=== PATIENT | male | born 1950 | race Caucasian/White ===

== ENCOUNTER 2021-05-02 00:32 | Emergency (ER) | payer OTHER ==
[2021-05-02 01:13] VITALS: TEMP 98.3; BMI 26.6
[2021-05-02 02:21] LABS: BASO % 0.6 % (0-2.0); EOS % 8.4 % (0-4.5); HEMATOCRIT 36.1 % (35.4-49); LYMPH % 10.2 % (8-40); MCH 30.5 pg (25.7-33.7); MCHC 33.2 g/dl (32.0-35.9); MEAN PLT VOLUME 8.4 fl (7.5-11.1); MONO % 11.3 % (3.8-10.2); NEUT % 69.5 % (42.8-82.8); PLATELET COUNT 204 10^3/uL (134-434); RBC 3.93 M/mm3 (4.00-5.60); RDW 14.7 % (11.9-15.9); WHITE BLOOD COUNT 6.9 K/mm3 (4.0-10.0)
[2021-05-02 02:27] LABS: VENOUS BASE EXCESS -1.5 mmol/L (-2-2); VENOUS PCO2 46.6 mmHg (38-52); VENOUS PH 7.339 (7.310-7.410)
[2021-05-02 02:30] LABS: INR 0.97 (0.83-1.09); PROTHROMBIN TIME (PATIENT) 11.8 SEC (9.7-13.0)
[2021-05-02] MEDS: ALBUTEROL SO4 2.5/IPRATROPIUM 0.5 INH SOL 3 ML VIAL.NEB. NEB SCH ×4 (02:30→03:13)
[2021-05-02 02:32] LABS: ACTIVATED PTT 28.5 SECONDS (25.2-36.5)
[2021-05-02 02:34] LABS: CHLORIDE 111 mmol/L (98-107); SODIUM 135 mmol/L (136-145)
[2021-05-02 02:39] LABS: ALBUMIN 3.3 g/dl (3.4-5.0); BLOOD UREA NITROGEN 19.9 mg/dL (7-18); CO2 22 mmol/L (21-32); GLUCOSE,RANDOM 81 mg/dL (74-106); MAGNESIUM 2.7 mg/dL (1.8-2.4)
[2021-05-02 02:42] LABS: CREATININE 1.5 mg/dL (0.55-1.3); SGOT/AST 72 U/L (15-37)
[2021-05-02 02:43] LABS: BILIRUBIN,TOTAL 0.5 mg/dL (0.2-1); N-TERMINAL BNP 93.9 pg/ml (5-125); TOT PROT 7.4 g/dl (6.4-8.2)
[2021-05-02 02:44] LABS: ALK PHOS 98 U/L (45-117)
[2021-05-02 02:47] LABS: ANION GAP 2 MMOL/L (8-16); SGPT/ALT 36 U/L (13-61)
[2021-05-02] MEDS ORDERED: SODIUM CHLORIDE 0.9% 1000 ML INFUS.BAG IV ONE (03:00)
[2021-05-02] MEDS ORDERED: CEFTRIAXONE 1 GM in DEXTROSE 5%-WATER - 50 ML IVPB ONE (03:15)
[2021-05-02] MEDS ORDERED: AZITHROMYCIN IVPB 500 MG in DEXTROSE 5%-WATER - 250 ML IVPB ONE (03:16)
[2021-05-02] MEDS ORDERED: CEFTRIAXONE 1 GM/50 ML BAG ONE (03:50)
[2021-05-02 04:29] LABS: BLOOD UREA NITROGEN 20.8 mg/dL (7-18); CALCIUM 8.1 mg/dL (8.5-10.1)
[2021-05-02 04:33] LABS: CREATININE 1.4 mg/dL (0.55-1.3)
[2021-05-02] MEDS ORDERED: DEXAMETHASONE LIQUID 0.5 MG/5 ML PO ONE (05:14)
[2021-05-02] MEDS ORDERED: DEXAMETHASONE SOD PHOSPHATE 10 MG/1 ML VIAL ONE ×2 (05:24→05:28)
[2021-05-02 05:31] VITALS: BP 110/76; PULSE 80
== END 2021-05-02 05:32 | disposition home or self-care (01) ==
LOC: JER 00:32
PROC: 3E033GC Introduction of Other Therapeutic Substance into Peripheral Vein, Percutaneous Approach (ICD-10-PCS; principal; 2021-05-02)
PROC: 3E0F7GC Introduction of Other Therapeutic Substance into Respiratory Tract, Via Natural or Artificial Opening (ICD-10-PCS; principal; 2021-05-02)
DX: J45.40 Moderate persistent asthma, uncomplicated (principal)
CPT/HCPCS: 36415; 71045-TC-FY; 71275-TC; 80048; 80053; 82803; 83735; 83880; 84484; 85025; 85379; 85610; 85730; 87040; 93005; 93010; 99285-25

== ENCOUNTER 2021-05-05 11:11 | Emergency (ER) | payer OTHER ==
[2021-05-05 11:41] VITALS: TEMP 98.2; BMI 29.1
[2021-05-05] MEDS ORDERED: DEXAMETHASONE SOD PHOSPHATE 10 MG/1 ML VIAL IM ONE (13:23)
[2021-05-05] MEDS ORDERED: DEXAMETHASONE SOD PHOSPHATE 10 MG/1 ML VIAL IVPUSH ONE (13:42)
[2021-05-05] MEDS ORDERED: ALBUTEROL SO4 2.5/IPRATROPIUM 0.5 INH SOL 3 ML VIAL.NEB. NEB ONE (13:53)
[2021-05-05] MEDS ORDERED: DEXAMETHASONE SOD PHOSPHATE 10 MG/1 ML VIAL ONE (13:53)
[2021-05-05] MEDS: ALBUTEROL SO4 2.5/IPRATROPIUM 0.5 INH SOL 3 ML VIAL.NEB. NEB SCH ×2 (13:58→14:40)
[2021-05-05 14:15] LABS: HEMATOCRIT 39.8 % (35.4-49); HEMOGLOBIN 12.9 GM/dL (11.7-16.9); MCH 30.2 pg (25.7-33.7); MCHC 32.4 g/dl (32.0-35.9); MEAN CELL VOLUME 93.1 fl (80-96); MEAN PLT VOLUME 9.1 fl (7.5-11.1); PLATELET COUNT 221 10^3/uL (134-434); RBC 4.28 M/mm3 (4.00-5.60); RDW 14.3 % (11.9-15.9); WHITE BLOOD COUNT 7.1 K/mm3 (4.0-10.0)
[2021-05-05 14:36] LABS: CHLORIDE 112 mmol/L (98-107); SODIUM 140 mmol/L (136-145)
[2021-05-05 14:38] LABS: CALCIUM 8.6 mg/dL (8.5-10.1)
[2021-05-05 14:39] LABS: ALBUMIN 3.4 g/dl (3.4-5.0); ANION GAP 6 MMOL/L (8-16); BLOOD UREA NITROGEN 25.5 mg/dL (7-18); CO2 23 mmol/L (21-32); GLUCOSE,RANDOM 79 mg/dL (74-106)
[2021-05-05 14:42] LABS: CREATININE 1.4 mg/dL (0.55-1.3); SGOT/AST 21 U/L (15-37); SGPT/ALT 33 U/L (13-61)
[2021-05-05 14:43] LABS: BILIRUBIN,TOTAL 0.3 mg/dL (0.2-1); TOT PROT 6.9 g/dl (6.4-8.2)
[2021-05-05 14:45] LABS: ALK PHOS 103 U/L (45-117)
[2021-05-05 14:47] LABS: N-TERMINAL BNP 98.5 pg/ml (5-125)
[2021-05-05 17:16] VITALS: BP 126/79; PULSE 89
== END 2021-05-05 17:26 | disposition home or self-care (01) ==
LOC: JER 11:11
PROC: 3E0F7GC Introduction of Other Therapeutic Substance into Respiratory Tract, Via Natural or Artificial Opening (ICD-10-PCS; principal; 2021-05-05)
PROC: 3E023NZ Introduction of Analgesics, Hypnotics, Sedatives into Muscle, Percutaneous Approach (ICD-10-PCS; 2021-05-05)
PROC: 3E033NZ Introduction of Analgesics, Hypnotics, Sedatives into Peripheral Vein, Percutaneous Approach (ICD-10-PCS; 2021-05-05)
DX: R06.02 Shortness of breath (principal)
CPT/HCPCS: 36415; 71046-TC-FY; 80053; 83880; 84484; 85027; 93005; 93010; 99284-25; J1100

== ENCOUNTER 2021-05-26 10:44 | Emergency (ER) | payer OTHER ==
[2021-05-26 10:51] VITALS: TEMP 97.8; BMI 29.0
[2021-05-26 12:15] LABS: BASO % 0.7 % (0-2.0); EOS % 17.3 % (0-4.5); HEMATOCRIT 38.4 % (35.4-49); HEMOGLOBIN 12.9 GM/dL (11.7-16.9); LYMPH % 17.5 % (8-40); MCH 30.7 pg (25.7-33.7); MCHC 33.6 g/dl (32.0-35.9); MEAN CELL VOLUME 91.3 fl (80-96); MEAN PLT VOLUME 8.5 fl (7.5-11.1); MONO % 10.6 % (3.8-10.2); NEUT % 53.9 % (42.8-82.8); PLATELET COUNT 171 10^3/uL (134-434); RBC 4.21 M/mm3 (4.00-5.60); RDW 14.8 % (11.9-15.9)
[2021-05-26 12:45] LABS: ALBUMIN 3.2 g/dl (3.4-5.0); CALCIUM 8.4 mg/dL (8.5-10.1); CO2 24 mmol/L (21-32); LIPASE 101 U/L (73-393)
[2021-05-26 12:46] LABS: BLOOD UREA NITROGEN 17.8 mg/dL (7-18); GLUCOSE,RANDOM 82 mg/dL (74-106)
[2021-05-26 12:48] LABS: CREATININE 1.5 mg/dL (0.55-1.3); SGOT/AST 18 U/L (15-37); SGPT/ALT 27 U/L (13-61)
[2021-05-26 12:50] LABS: BILIRUBIN,TOTAL 0.3 mg/dL (0.2-1); TOT PROT 7.3 g/dl (6.4-8.2)
[2021-05-26 12:51] LABS: ALK PHOS 95 U/L (45-117)
[2021-05-26] MEDS ORDERED: methylPREDNISolone NA SUCC 125 MG/2 ML VIAL IVPUSH ONE (12:52)
[2021-05-26] MEDS ORDERED: methylPREDNISolone NA SUCC 125 MG/2 ML VIAL ONE (13:05)
[2021-05-26 13:10] LABS: ANION GAP 8 MMOL/L (8-16); CHLORIDE 112 mmol/L (98-107); SODIUM 143 mmol/L (136-145)
[2021-05-26] MEDS: ALBUTEROL SO4 2.5/IPRATROPIUM 0.5 INH SOL 3 ML VIAL.NEB. NEB SCH ×4 (13:15→14:10)
[2021-05-26] MEDS ORDERED: ALBUTEROL SO4 2.5/IPRATROPIUM 0.5 INH SOL 3 ML VIAL.NEB. NEB ONE (13:58)
[2021-05-26 16:01] VITALS: BP 122/75; PULSE 84
== END 2021-05-26 16:57 | disposition home or self-care (01) ==
LOC: JER 10:44
PROC: 3E033NZ Introduction of Analgesics, Hypnotics, Sedatives into Peripheral Vein, Percutaneous Approach (ICD-10-PCS; principal; 2021-05-26)
PROC: 3E0F7GC Introduction of Other Therapeutic Substance into Respiratory Tract, Via Natural or Artificial Opening (ICD-10-PCS; 2021-05-26)
DX: J44.1 Chronic obstructive pulmonary disease with (acute) exacerbation (principal)
CPT/HCPCS: 36415; 71045-TC-FY; 80053; 82550; 82553; 83690; 84484; 85025; 93005; 93010; 99284-25; C9803; U0003; U0005

== ENCOUNTER 2021-07-17 23:57 | Inpatient (IN) | payer OTHER ==
[2021-07-18 00:16] VITALS: TEMP 98.9; BMI 26.7
[2021-07-18] MEDS ORDERED: ALBUTEROL SO4 2.5/IPRATROPIUM 0.5 INH SOL 3 ML VIAL.NEB. NEB ONE ×2 (01:00→01:02)
[2021-07-18] MEDS ORDERED: methylPREDNISolone NA SUCC 125 MG/2 ML VIAL IVPUSH ONE (01:19)
[2021-07-18] MEDS ORDERED: methylPREDNISolone NA SUCC 125 MG/2 ML VIAL ONE (01:46)
[2021-07-18 02:20] LABS: BASO % 0.7 % (0-2.0); HEMATOCRIT 36.7 % (35.4-49); HEMOGLOBIN 12.5 GM/dL (11.7-16.9); LYMPH % 21.7 % (8-40); MCH 31.4 pg (25.7-33.7); MCHC 34.1 g/dl (32.0-35.9); MEAN PLT VOLUME 8.5 fl (7.5-11.1); MONO % 9.8 % (3.8-10.2); NEUT % 55.8 % (42.8-82.8); PLATELET COUNT 184 10^3/uL (134-434); RBC 3.99 M/mm3 (4.00-5.60); RDW 14.6 % (11.9-15.9); WHITE BLOOD COUNT 6.1 K/mm3 (4.0-10.0)
[2021-07-18 02:38] LABS: CHLORIDE 110 mmol/L (98-107); SODIUM 143 mmol/L (136-145)
[2021-07-18 02:42] LABS: ALBUMIN 3.2 g/dl (3.4-5.0); ANION GAP 4 MMOL/L (8-16); BLOOD UREA NITROGEN 29.3 mg/dL (7-18); CO2 29 mmol/L (21-32); GLUCOSE,RANDOM 124 mg/dL (74-106)
[2021-07-18 02:45] LABS: CREATININE 1.7 mg/dL (0.55-1.3); SGOT/AST 28 U/L (15-37); SGPT/ALT 28 U/L (13-61)
[2021-07-18] MEDS ORDERED: ALBUTEROL SO4 HFA INHALER IH ONE ×2 (02:45→03:52)
[2021-07-18 02:46] LABS: BILIRUBIN,TOTAL 0.6 mg/dL (0.2-1)
[2021-07-18 02:47] LABS: TOT PROT 7.2 g/dl (6.4-8.2)
[2021-07-18 02:48] LABS: ALK PHOS 103 U/L (45-117)
[2021-07-18] MEDS ORDERED: ALBUTEROL SO4 HFA INHALER IH PRN (05:16)
[2021-07-18] MEDS ORDERED: HEPARIN NA (PORCINE) 5,000 UNITS/ML 1ML VIAL ONE (08:20)
[2021-07-18] MEDS ORDERED: methylPREDNISolone NA SUCC 40 MG/1 ML VIAL ONE ×2 (08:20→16:21)
[2021-07-18] MEDS: methylPREDNISolone NA SUCC 40 MG/1 ML VIAL IVPUSH SCH ×2 (08:27→15:30)
[2021-07-18] MEDS ORDERED: HEPARIN NA (PORCINE) 5,000 UNITS/ML 1ML VIAL SQ SCH (10:00)
[2021-07-18 12:48] LABS: PH,URINE 5.5 (5.0-8.0); URINE APPEARANCE CLEAR; URINE BILIRUBIN NEGATIVE (NEGATIVE); URINE COLOR YELLOW; URINE GLUCOSE (UA) NEGATIVE (NEGATIVE); URINE KETONE NEGATIVE (NEGATIVE); URINE LEUK ESTERASE NEGATIVE (NEGATIVE); URINE NITRITE NEGATIVE (NEGATIVE); URINE PROTEIN NEGATIVE (NEGATIVE); URINE UROBILINOGEN 0.2 mg/dL (0.2-1.0)
[2021-07-18 12:57] LABS: ALBUMIN 3.4 g/dl (3.4-5.0); BLOOD UREA NITROGEN 26.6 mg/dL (7-18)
[2021-07-18 12:58] LABS: MAGNESIUM 2.7 mg/dL (1.8-2.4)
[2021-07-18 13:01] LABS: CREATININE 1.5 mg/dL (0.55-1.3); PHOSPHOROUS 3.3 mg/dL (2.5-4.9)
[2021-07-18 13:02] LABS: BILIRUBIN,TOTAL 0.3 mg/dL (0.2-1)
[2021-07-18 13:03] LABS: TOT PROT 7.6 g/dl (6.4-8.2)
[2021-07-18 17:48] VITALS: BP 139/88; PULSE 79
[2021-07-21 12:08] LABS: ANTIGLOMERULAR BASEMENT MEN.AB 2 units (0-20)
[2021-07-22 18:11] LABS: ATYPICAL pANCA <1:20 titer (Neg:<1:20); C-ANCA <1:20 titer (Neg:<1:20)
== END 2021-07-18 18:00 | disposition home or self-care (01) | DRG 141 ==
LOC: JER 23:57 → JERBED 07-18 03:00
PROVIDERS: ADMIT Internal Medicine; ATTEND Internal Medicine
DX: J45.901 Unspecified asthma with (acute) exacerbation (principal); D72.10 Eosinophilia, unspecified; N18.9 Chronic kidney disease, unspecified; R06.02 Shortness of breath; R07.9 Chest pain, unspecified; R09.02 Hypoxemia; N17.9 Acute kidney failure, unspecified
CPT/HCPCS: 36415; 71045-TC-FY; 76775-TC; 80053; 81003; 83036; 83516; 83520; 83735; 84100; 84484; 85025; 86038; 86140; 86256; 93005; 93010; 93970-TC; 99285-25; C9803; J1644; U0003; U0005

== ENCOUNTER 2022-05-13 10:13 | Inpatient (IN) | payer OTHER ==
[2022-05-13 10:21] VITALS: BMI 28.1
[2022-05-13] MEDS ORDERED: methylPREDNISolone NA SUCC 125 MG/2 ML VIAL IVPUSH ONE (11:35)
[2022-05-13] MEDS: ALBUTEROL SO4 2.5/IPRATROPIUM 0.5 INH SOL 3 ML VIAL.NEB. NEB SCH ×4 (11:45→12:22)
[2022-05-13] MEDS ORDERED: methylPREDNISolone NA SUCC 125 MG/2 ML VIAL ONE ×2 (11:52→17:36)
[2022-05-13] MEDS ORDERED: ALBUTEROL SO4 2.5/IPRATROPIUM 0.5 INH SOL 3 ML VIAL.NEB. NEB ONE (12:11)
[2022-05-13 12:16] LABS: BASO % 0.7 % (0-2.0); EOS % 10.9 % (0-4.5); HEMATOCRIT 39.8 % (35.4-49); HEMOGLOBIN 13.2 GM/dL (11.7-16.9); LYMPH % 15.4 % (8-40); MCH 30.5 pg (25.7-33.7); MCHC 33.3 g/dl (32.0-35.9); MEAN CELL VOLUME 91.6 fl (80-96); MEAN PLT VOLUME 8.3 fl (7.5-11.1); MONO % 9.5 % (3.8-10.2); NEUT % 63.5 % (42.8-82.8); PLATELET COUNT 217 10^3/uL (134-434); RBC 4.34 M/mm3 (4.00-5.60); RDW 14.6 % (11.9-15.9)
[2022-05-13 12:35] LABS: ALBUMIN 3.8 g/dl (3.4-5.0); BLOOD UREA NITROGEN 25.8 mg/dL (7-18)
[2022-05-13 12:38] LABS: CREATININE 1.5 mg/dL (0.55-1.3)
[2022-05-13 12:40] LABS: BILIRUBIN,TOTAL 0.4 mg/dL (0.2-1); TOT PROT 7.6 g/dl (6.4-8.2)
[2022-05-13] MEDS ORDERED: ALBUTEROL SO4 0.5 % INH SOLN 2.5 MG/0.5 ML VIAL.NEB. NEB ONE (13:46)
[2022-05-13] MEDS ORDERED: ALBUTEROL SO4 0.083% IH SOL 2.5 MG/3 ML VIAL.NEB. NEB ONE (14:13)
[2022-05-13] MEDS ORDERED: ALBUTEROL SO4 2.5/IPRATROPIUM 0.5 INH SOL 3 ML VIAL.NEB. NEB PRN (17:25)
[2022-05-13] MEDS ORDERED: ASPIRIN COATED 81 MG TABLET.EC ONE (17:37)
[2022-05-13] MEDS: ASPIRIN COATED 81 MG TABLET.EC PO SCH (17:48)
[2022-05-13] MEDS: methylPREDNISolone NA SUCC 125 MG/2 ML VIAL IVPUSH SCH (17:49)
[2022-05-13] MEDS ORDERED: HEPARIN NA (PORCINE) 5,000 UNITS/ML 1ML VIAL ONE (22:00)
[2022-05-13] MEDS: HEPARIN NA (PORCINE) 5,000 UNITS/ML 1ML VIAL SQ SCH (22:12)
[2022-05-14] MEDS ORDERED: methylPREDNISolone NA SUCC 40 MG/1 ML VIAL ONE ×3 (02:39→22:26)
[2022-05-14] MEDS: methylPREDNISolone NA SUCC 125 MG/2 ML VIAL IVPUSH SCH ×2 (02:47→09:19)
[2022-05-14 08:15] LABS: ALBUMIN 3.5 g/dl (3.4-5.0); BLOOD UREA NITROGEN 28.6 mg/dL (7-18); HEMATOCRIT 37.8 % (35.4-49); HEMOGLOBIN 12.6 GM/dL (11.7-16.9); MCH 30.5 pg (25.7-33.7); MCHC 33.4 g/dl (32.0-35.9); MEAN CELL VOLUME 91.5 fl (80-96); MEAN PLT VOLUME 9.4 fl (7.5-11.1); PLATELET COUNT 216 10^3/uL (134-434); RBC 4.13 M/mm3 (4.00-5.60); RDW 14.8 % (11.9-15.9); WHITE BLOOD COUNT 10.8 K/mm3 (4.0-10.0)
[2022-05-14 08:20] LABS: CREATININE 1.4 mg/dL (0.55-1.3)
[2022-05-14 08:21] LABS: BILIRUBIN,TOTAL 0.4 mg/dL (0.2-1); TOT PROT 7.3 g/dl (6.4-8.2)
[2022-05-14] MEDS ORDERED: PANTOPRAZOLE 20 MG TABLET PO ONE (09:10)
[2022-05-14] MEDS ORDERED: ASPIRIN COATED 81 MG TABLET.EC ONE (09:10)
[2022-05-14] MEDS ORDERED: HEPARIN NA (PORCINE) 5,000 UNITS/ML 1ML VIAL ONE ×2 (09:11→22:25)
[2022-05-14] MEDS ORDERED: methylPREDNISolone NA SUCC 125 MG/2 ML VIAL ONE (09:11)
[2022-05-14] MEDS: ASPIRIN COATED 81 MG TABLET.EC PO SCH (09:19)
[2022-05-14] MEDS: HEPARIN NA (PORCINE) 5,000 UNITS/ML 1ML VIAL SQ SCH ×2 (09:19→22:32)
[2022-05-14] MEDS: PANTOPRAZOLE 20 MG TABLET PO SCH (09:19)
[2022-05-14 09:25] LABS: ANISOCYTOSIS 0; HELMET CELLS 0; HOWELL-JOLLY BODIES 0; MACROCYTOSIS 0; OVALOCYTE 0; ROULEAU 0; SICKELED CELLS 0; TARGET CELLS 0; TEAR DROP CELLS 0; TOXIC GRANULATION 0
[2022-05-14] MEDS ORDERED: ALBUTEROL SO4 2.5/IPRATROPIUM 0.5 INH SOL 3 ML VIAL.NEB. NEB SCH (12:15)
[2022-05-14] MEDS ORDERED: ALBUTEROL SO4 0.083% IH SOL 2.5 MG/3 ML VIAL.NEB. NEB PRN (12:22)
[2022-05-14] MEDS ORDERED: ALBUTEROL SO4 2.5/IPRATROPIUM 0.5 INH SOL 3 ML VIAL.NEB. NEB ONE ×2 (12:51→20:49)
[2022-05-14] MEDS: methylPREDNISolone NA SUCC 40 MG/1 ML VIAL IVPUSH SCH ×2 (13:02→22:32)
[2022-05-14] MEDS: ALBUTEROL SO4 2.5/IPRATROPIUM 0.5 INH SOL 3 ML VIAL.NEB. NEB SCH ×2 (15:09→20:50)
[2022-05-14] MEDS ORDERED: ATORVASTATIN CA 40 MG TABLET (FP) ONE (22:25)
[2022-05-14] MEDS: ATORVASTATIN CA 40 MG TABLET (FP) PO SCH (22:32)
[2022-05-15] MEDS ORDERED: methylPREDNISolone NA SUCC 40 MG/1 ML VIAL ONE ×2 (05:55→14:58)
[2022-05-15] MEDS: methylPREDNISolone NA SUCC 40 MG/1 ML VIAL IVPUSH SCH ×3 (06:01→21:22)
[2022-05-15] MEDS ORDERED: ALBUTEROL SO4 2.5/IPRATROPIUM 0.5 INH SOL 3 ML VIAL.NEB. NEB ONE ×2 (07:40→14:58)
[2022-05-15] MEDS: ALBUTEROL SO4 2.5/IPRATROPIUM 0.5 INH SOL 3 ML VIAL.NEB. NEB SCH ×3 (07:41→20:45)
[2022-05-15 08:35] LABS: HEMATOCRIT 41.1 % (35.4-49); HEMOGLOBIN 13.4 GM/dL (11.7-16.9); MCHC 32.6 g/dl (32.0-35.9); MEAN PLT VOLUME 9.2 fl (7.5-11.1); PLATELET COUNT 249 10^3/uL (134-434); RBC 4.47 M/mm3 (4.00-5.60); RDW 14.9 % (11.9-15.9); WHITE BLOOD COUNT 27.4 K/mm3 (4.0-10.0)
[2022-05-15 09:00] LABS: BLOOD UREA NITROGEN 40.6 mg/dL (7-18); CALCIUM 9.2 mg/dL (8.5-10.1)
[2022-05-15 09:04] LABS: CREATININE 1.7 mg/dL (0.55-1.3)
[2022-05-15 09:12] LABS: ANISOCYTOSIS 1+; MACROCYTOSIS 0
[2022-05-15] MEDS ORDERED: ASPIRIN COATED 81 MG TABLET.EC ONE (09:46)
[2022-05-15] MEDS ORDERED: PANTOPRAZOLE 20 MG TABLET PO ONE (09:46)
[2022-05-15] MEDS ORDERED: HEPARIN NA (PORCINE) 5,000 UNITS/ML 1ML VIAL ONE (09:47)
[2022-05-15] MEDS: ASPIRIN COATED 81 MG TABLET.EC PO SCH (09:50)
[2022-05-15] MEDS: HEPARIN NA (PORCINE) 5,000 UNITS/ML 1ML VIAL SQ SCH ×2 (09:50→21:22)
[2022-05-15] MEDS: PANTOPRAZOLE 20 MG TABLET PO SCH (09:50)
[2022-05-15] MEDS ORDERED: methylPREDNISolone NA SUCC 40 MG/1 ML VIAL IVPUSH SCH (10:00)
[2022-05-15] MEDS: ATORVASTATIN CA 40 MG TABLET (FP) PO SCH (21:22)
[2022-05-16] MEDS: methylPREDNISolone NA SUCC 40 MG/1 ML VIAL IVPUSH SCH (05:12)
[2022-05-16 05:52] VITALS: PULSE 68
[2022-05-16 07:36] LABS: BASO % 0.1 % (0-2.0); HEMATOCRIT 37.8 % (35.4-49); HEMOGLOBIN 12.3 GM/dL (11.7-16.9); LYMPH % 5.1 % (8-40); MCH 30.1 pg (25.7-33.7); MCHC 32.6 g/dl (32.0-35.9); MEAN CELL VOLUME 92.3 fl (80-96); MEAN PLT VOLUME 9.3 fl (7.5-11.1); NEUT % 90.8 % (42.8-82.8); PLATELET COUNT 202 10^3/uL (134-434); RDW 14.8 % (11.9-15.9); WHITE BLOOD COUNT 17.3 K/mm3 (4.0-10.0)
[2022-05-16 07:56] LABS: CALCIUM 8.7 mg/dL (8.5-10.1)
[2022-05-16 07:57] LABS: BLOOD UREA NITROGEN 33.4 mg/dL (7-18)
[2022-05-16 08:00] LABS: CREATININE 1.5 mg/dL (0.55-1.3)
[2022-05-16] MEDS: ALBUTEROL SO4 2.5/IPRATROPIUM 0.5 INH SOL 3 ML VIAL.NEB. NEB SCH (08:38)
[2022-05-16] MEDS: HEPARIN NA (PORCINE) 5,000 UNITS/ML 1ML VIAL SQ SCH (12:07)
[2022-05-16] MEDS: ASPIRIN COATED 81 MG TABLET.EC PO SCH (12:07)
[2022-05-16] MEDS: PANTOPRAZOLE 20 MG TABLET PO SCH (12:07)
[2022-05-16 14:57] VITALS: BP 118/74; TEMP 98
[2022-05-17] MEDS ORDERED: predniSONE 20 MG TABLET (UD) PO SCH (10:00)
== END 2022-05-16 16:17 | disposition home or self-care (01) | DRG 140 ==
LOC: JER 10:13 → JERBED 16:21 → J4W 05-15 18:30
PROVIDERS: ADMIT Internal Medicine; ATTEND Internal Medicine
DX: J44.1 Chronic obstructive pulmonary disease with (acute) exacerbation (principal); E78.5 Hyperlipidemia, unspecified; R06.09 Other forms of dyspnea; D72.829 Elevated white blood cell count, unspecified; J45.909 Unspecified asthma, uncomplicated; R05.9 Cough, unspecified; R06.02 Shortness of breath; R07.89 Other chest pain; R73.03 Prediabetes
CPT/HCPCS: 0241U-QW; 36415; 71046-TC-FY; 78452-TC; 80048; 80053; 80061; 83036; 84439; 84443; 84484; 85025; 93005; 93010; 93017; 93306-TC; 94640; 99285-25; A9502; C9803-CS; J1644; U0003; U0005

== ENCOUNTER 2022-06-12 09:13 | Emergency (ER) | payer OTHER ==
[2022-06-12 09:20] VITALS: BP 113/83; PULSE 80; RESP 20; TEMP 97.8; BMI 32.4
[2022-06-12] MEDS ORDERED: DEXAMETHASONE SOD PHOSPHATE 10 MG/1 ML VIAL IM ONE (10:57)
[2022-06-12] MEDS ORDERED: ALBUTEROL SO4 2.5/IPRATROPIUM 0.5 INH SOL 3 ML VIAL.NEB. NEB ONE (11:04)
[2022-06-12] MEDS ORDERED: DEXAMETHASONE SOD PHOSPHATE 10 MG/1 ML VIAL ONE (11:04)
[2022-06-12] MEDS: ALBUTEROL SO4 2.5/IPRATROPIUM 0.5 INH SOL 3 ML VIAL.NEB. NEB SCH ×4 (11:13→12:06)
== END 2022-06-12 12:22 | disposition home or self-care (01) ==
LOC: JER 09:13
PROC: 3E0F7GC Introduction of Other Therapeutic Substance into Respiratory Tract, Via Natural or Artificial Opening (ICD-10-PCS; principal; 2022-06-12)
PROC: 3E023NZ Introduction of Analgesics, Hypnotics, Sedatives into Muscle, Percutaneous Approach (ICD-10-PCS; 2022-06-12)
DX: J44.1 Chronic obstructive pulmonary disease with (acute) exacerbation (principal)
CPT/HCPCS: 99283-25; J1100

== ENCOUNTER 2022-07-13 13:37 | Emergency (ER) | payer OTHER ==
[2022-07-13 14:01] VITALS: BMI 29.5
[2022-07-13] MEDS: ALBUTEROL SO4 2.5/IPRATROPIUM 0.5 INH SOL 3 ML VIAL.NEB. NEB SCH ×5 (15:46→16:31)
[2022-07-13] MEDS ORDERED: ALBUTEROL SO4 2.5/IPRATROPIUM 0.5 INH SOL 3 ML VIAL.NEB. NEB ONE ×3 (16:07→18:13)
[2022-07-13] MEDS ORDERED: MAGNESIUM SULF 50% (8.12 MEQ/2 ML-1 GM VIAL) IVPB ONE (16:12)
[2022-07-13] MEDS ORDERED: methylPREDNISolone NA SUCC 125 MG/2 ML VIAL IVPUSH ONE (16:13)
[2022-07-13] MEDS ORDERED: methylPREDNISolone NA SUCC 125 MG/2 ML VIAL ONE (16:20)
[2022-07-13] MEDS ORDERED: MAGNESIUM SULFATE IN WATER 2 GM/50 ML IVPB IVPB ONE (16:20)
[2022-07-13 16:40] LABS: BASO % 0.5 % (0-2.0); EOS % 6.6 % (0-4.5); HEMATOCRIT 39.2 % (35.4-49); HEMOGLOBIN 13.1 GM/dL (11.7-16.9); LYMPH % 14.9 % (8-40); MCH 30.7 pg (25.7-33.7); MCHC 33.4 g/dl (32.0-35.9); MEAN PLT VOLUME 8.3 fl (7.5-11.1); PLATELET COUNT 224 10^3/uL (134-434); RBC 4.26 M/mm3 (4.00-5.60); RDW 14.5 % (11.9-15.9); WHITE BLOOD COUNT 5.3 K/mm3 (4.0-10.0)
[2022-07-13 17:02] LABS: CALCIUM 8.3 mg/dL (8.5-10.1)
[2022-07-13 17:03] LABS: ALBUMIN 3.3 g/dl (3.4-5.0); BLOOD UREA NITROGEN 28.4 mg/dL (7-18); MAGNESIUM 2.6 mg/dL (1.8-2.4)
[2022-07-13 17:06] LABS: CREATININE 1.5 mg/dL (0.55-1.3)
[2022-07-13 17:07] LABS: BILIRUBIN,TOTAL 0.3 mg/dL (0.2-1)
[2022-07-13 17:08] LABS: TOT PROT 6.9 g/dl (6.4-8.2)
[2022-07-13 17:11] LABS: N-TERMINAL BNP 65.8 pg/ml (5-125)
[2022-07-13] MEDS ORDERED: ALBUTEROL SO4 HFA INHALER IH ONE ×2 (18:12→18:42)
[2022-07-13 18:20] VITALS: BP 113/63; PULSE 74; RESP 20; TEMP 97.9
== END 2022-07-13 18:48 | disposition home or self-care (01) ==
LOC: JER 13:37
PROC: 3E033GC Introduction of Other Therapeutic Substance into Peripheral Vein, Percutaneous Approach (ICD-10-PCS; principal; 2022-07-13)
PROC: 3E0F7GC Introduction of Other Therapeutic Substance into Respiratory Tract, Via Natural or Artificial Opening (ICD-10-PCS; 2022-07-13)
DX: J44.1 Chronic obstructive pulmonary disease with (acute) exacerbation (principal)
CPT/HCPCS: 36415; 71046-TC-FY; 80053; 83735; 83880; 84484; 85025; 93005; 93010; 99285-25; C9803-CS; U0003; U0005

== ENCOUNTER 2022-08-16 08:28 | Emergency (ER) | payer OTHER ==
[2022-08-16 08:37] VITALS: BMI 29.5
[2022-08-16 10:12] LABS: BASO % 0.8 % (0-2.0); EOS % 6.6 % (0-4.5); HEMATOCRIT 38.9 % (35.4-49); LYMPH % 10.9 % (8-40); MCH 30.9 pg (25.7-33.7); MCHC 33.3 g/dl (32.0-35.9); MEAN CELL VOLUME 92.6 fl (80-96); MEAN PLT VOLUME 8.8 fl (7.5-11.1); MONO % 7.6 % (3.8-10.2); NEUT % 74.1 % (42.8-82.8); PLATELET COUNT 214 10^3/uL (134-434); RDW 15.2 % (11.9-15.9); VENOUS BASE EXCESS -2.1 mmol/L (-2-2); VENOUS PCO2 48.6 mmHg (38-52); VENOUS PH 7.32 (7.310-7.410); WHITE BLOOD COUNT 7.7 K/mm3 (4.0-10.0)
[2022-08-16 10:34] LABS: CALCIUM 8.9 mg/dL (8.5-10.1)
[2022-08-16 10:35] LABS: ALBUMIN 3.5 g/dl (3.4-5.0); BLOOD UREA NITROGEN 20.2 mg/dL (7-18)
[2022-08-16 10:37] LABS: MAGNESIUM 2.5 mg/dL (1.8-2.4)
[2022-08-16 10:38] LABS: CREATININE 1.4 mg/dL (0.55-1.3)
[2022-08-16 10:40] LABS: BILIRUBIN,TOTAL 0.3 mg/dL (0.2-1)
[2022-08-16 12:09] VITALS: TEMP 98.9
[2022-08-16] MEDS ORDERED: predniSONE 20 MG TABLET (UD) PO ONE (12:35)
[2022-08-16] MEDS ORDERED: ALBUTEROL SO4 2.5/IPRATROPIUM 0.5 INH SOL 3 ML VIAL.NEB. NEB ONE ×2 (12:52→12:54)
[2022-08-16] MEDS ORDERED: predniSONE 20 MG TABLET (UD) ONE (12:52)
[2022-08-16] MEDS: ALBUTEROL SO4 2.5/IPRATROPIUM 0.5 INH SOL 3 ML VIAL.NEB. NEB SCH ×2 (12:58→12:59)
[2022-08-16 15:05] VITALS: BP 130/73; PULSE 78; RESP 18
== END 2022-08-16 15:09 | disposition home or self-care (01) ==
LOC: JER 08:28
PROC: 3E0F7GC Introduction of Other Therapeutic Substance into Respiratory Tract, Via Natural or Artificial Opening (ICD-10-PCS; principal; 2022-08-16)
DX: J44.1 Chronic obstructive pulmonary disease with (acute) exacerbation (principal)
CPT/HCPCS: 0241U-QW; 36415; 71045-TC-FY; 80053; 82803; 83735; 83880; 84484; 85025; 93005; 93010; 99285-25

== ENCOUNTER 2022-08-29 04:01 | Inpatient (IN) | payer OTHER ==
[2022-08-29] MEDS ORDERED: ALBUTEROL SO4 2.5/IPRATROPIUM 0.5 INH SOL 3 ML VIAL.NEB. NEB ONE ×4 (04:29→22:14)
[2022-08-29 05:00] LABS: VENOUS BASE EXCESS -0.5 mmol/L (-2-2); VENOUS O2 SATURATION 82.9 % (70-80); VENOUS PCO2 50.1 mmHg (38-52); VENOUS PH 7.333 (7.310-7.410)
[2022-08-29 05:25] LABS: ALBUMIN 3.4 g/dl (3.4-5.0); CALCIUM 8.3 mg/dL (8.5-10.1); MAGNESIUM 4.2 mg/dL (1.8-2.4)
[2022-08-29 05:26] LABS: BASO % 0.3 % (0-2.0); EOS % 5.4 % (0-4.5); HEMATOCRIT 39.7 % (35.4-49); HEMOGLOBIN 12.9 GM/dL (11.7-16.9); LYMPH % 10.1 % (8-40); MCHC 32.5 g/dl (32.0-35.9); MEAN CELL VOLUME 92.6 fl (80-96); MEAN PLT VOLUME 8.9 fl (7.5-11.1); NEUT % 72.2 % (42.8-82.8); PLATELET COUNT 220 10^3/uL (134-434); RBC 4.29 M/mm3 (4.00-5.60)
[2022-08-29 05:28] LABS: CREATININE 1.8 mg/dL (0.55-1.3)
[2022-08-29 05:30] LABS: BILIRUBIN,TOTAL 0.2 mg/dL (0.2-1); TOT PROT 6.8 g/dl (6.4-8.2)
[2022-08-29] MEDS ORDERED: PIPERACILLIN/TAZOB 4.5 GM 4.5 GM in DEXTROSE 5%-WATER 100 ML IVPB ONE (05:40)
[2022-08-29] MEDS ORDERED: SODIUM CHLORIDE 0.9% 500 ML INFUS.BAG IV ONE (05:43)
[2022-08-29] MEDS ORDERED: VANCOMYCIN 1 GM in D5W (PRE-DOCKED) 1,000 MG/250 ML IVPB ONE (05:44)
[2022-08-29 05:52] LABS: INR 0.89 (0.83-1.09); PROTHROMBIN TIME (PATIENT) 10.2 SEC (9.7-13.0)
[2022-08-29 05:55] LABS: ACTIVATED PTT 25.5 SECONDS (25.2-36.5)
[2022-08-29] MEDS ORDERED: PIPERACILLIN/TAZOB 4.5 GM 4.5 GM/100 ML BAG IVPB ONE (05:59)
[2022-08-29] MEDS ORDERED: VANCOMYCIN 500 MG VIAL (RESTRICTED TO ID ONLY) ONE (06:41)
[2022-08-29] MEDS ORDERED: VANCOMYCIN/WATER FOR INJ (PEG) 1,000 MG/200 ML BAG IVPB ONE (06:42)
[2022-08-29] MEDS ORDERED: ACETAMINOPHEN 325 MG TABLET (FP) PO PRN (08:17)
[2022-08-29] MEDS ORDERED: ALBUTEROL SO4 HFA INHALER IH PRN (08:25)
[2022-08-29] MEDS ORDERED: methylPREDNISolone NA SUCC 125 MG/2 ML VIAL IVPUSH ONE (08:29)
[2022-08-29] MEDS ORDERED: methylPREDNISolone NA SUCC 125 MG/2 ML VIAL ONE (09:52)
[2022-08-29] MEDS ORDERED: ENOXAPARIN NA (PORCINE) 40 MG/0.4 ML DISP.SYRIN SQ ONE (09:52)
[2022-08-29] MEDS: ENOXAPARIN NA (PORCINE) 40 MG/0.4 ML DISP.SYRIN SQ SCH (09:53)
[2022-08-29] MEDS: ALBUTEROL SO4 2.5/IPRATROPIUM 0.5 INH SOL 3 ML VIAL.NEB. NEB SCH ×3 (12:05→22:11)
[2022-08-29 13:52] LABS: PH,URINE 5.5 (5.0-8.0); URINE APPEARANCE CLEAR; URINE BILIRUBIN NEGATIVE (NEGATIVE); URINE COLOR YELLOW; URINE GLUCOSE (UA) NEGATIVE (NEGATIVE); URINE KETONE NEGATIVE (NEGATIVE); URINE LEUK ESTERASE NEGATIVE (NEGATIVE); URINE NITRITE NEGATIVE (NEGATIVE); URINE PROTEIN NEGATIVE (NEGATIVE); URINE UROBILINOGEN 0.2 mg/dL (0.2-1.0)
[2022-08-29] MEDS ORDERED: methylPREDNISolone NA SUCC 40 MG/1 ML VIAL ONE (17:37)
[2022-08-29] MEDS: methylPREDNISolone NA SUCC 40 MG/1 ML VIAL IVPUSH SCH (17:41)
[2022-08-29] MEDS: BUDESONIDE/FORMETEROL FUMARATE 160/4.5 mcg INHALER IH SCH (22:11)
[2022-08-29] MEDS ORDERED: ALBUTEROL SO4 0.083% IH SOL 2.5 MG/3 ML VIAL.NEB. NEB ONE (22:13)
[2022-08-30] MEDS ORDERED: methylPREDNISolone NA SUCC 40 MG/1 ML VIAL ONE ×2 (00:52→09:07)
[2022-08-30] MEDS: methylPREDNISolone NA SUCC 40 MG/1 ML VIAL IVPUSH SCH ×3 (01:04→17:25)
[2022-08-30 08:24] LABS: CALCIUM 8.8 mg/dL (8.5-10.1)
[2022-08-30 08:25] LABS: BLOOD UREA NITROGEN 22.5 mg/dL (7-18); MAGNESIUM 2.8 mg/dL (1.8-2.4)
[2022-08-30 08:28] LABS: CREATININE 1.4 mg/dL (0.55-1.3); PHOSPHOROUS 3.5 mg/dL (2.5-4.9)
[2022-08-30 08:30] LABS: BILIRUBIN,TOTAL 0.2 mg/dL (0.2-1); TOT PROT 6.4 g/dl (6.4-8.2)
[2022-08-30] MEDS ORDERED: ENOXAPARIN NA (PORCINE) 40 MG/0.4 ML DISP.SYRIN SQ ONE (09:06)
[2022-08-30] MEDS ORDERED: ALBUTEROL SO4 2.5/IPRATROPIUM 0.5 INH SOL 3 ML VIAL.NEB. NEB ONE (09:06)
[2022-08-30 09:31] LABS: HEMOGLOBIN 12.3 GM/dL (11.7-16.9); MCH 30.9 pg (25.7-33.7); MCHC 33.1 g/dl (32.0-35.9); MEAN CELL VOLUME 93.4 fl (80-96); MEAN PLT VOLUME 8.6 fl (7.5-11.1); PLATELET COUNT 216 10^3/uL (134-434); RBC 3.96 M/mm3 (4.00-5.60); RDW 15.6 % (11.9-15.9); WHITE BLOOD COUNT 18.3 K/mm3 (4.0-10.0)
[2022-08-30] MEDS: BUDESONIDE/FORMETEROL FUMARATE 160/4.5 mcg INHALER IH SCH ×2 (09:46→21:58)
[2022-08-30] MEDS: ALBUTEROL SO4 2.5/IPRATROPIUM 0.5 INH SOL 3 ML VIAL.NEB. NEB SCH ×4 (09:46→20:16)
[2022-08-30] MEDS: ENOXAPARIN NA (PORCINE) 40 MG/0.4 ML DISP.SYRIN SQ SCH (09:46)
[2022-08-30 10:50] LABS: ANISOCYTOSIS 1+; MACROCYTOSIS 1+
[2022-08-30] MEDS ORDERED: guaiFENesin/D-M SUGAR-FREE/ACLHOL-FREE 5 ML UNIT DOSE PO PRN (11:55)
[2022-08-30] MEDS: FAMOTIDINE 20 MG TABLET PO SCH ×2 (12:13→21:57)
[2022-08-30 13:25] VITALS: BMI 30.2
[2022-08-30] MEDS: LIDOCAINE 5% TOPICAL PATCH TP SCH (14:14)
[2022-08-30] MEDS: LIDOCAINE PATCH REMOVAL MC SCH (21:59)
[2022-08-31] MEDS: methylPREDNISolone NA SUCC 40 MG/1 ML VIAL IVPUSH SCH ×3 (01:58→17:32)
[2022-08-31] MEDS: ALBUTEROL SO4 2.5/IPRATROPIUM 0.5 INH SOL 3 ML VIAL.NEB. NEB SCH ×4 (07:45→20:20)
[2022-08-31] MEDS: FAMOTIDINE 20 MG TABLET PO SCH ×2 (09:33→22:35)
[2022-08-31] MEDS: ENOXAPARIN NA (PORCINE) 40 MG/0.4 ML DISP.SYRIN SQ SCH (09:33)
[2022-08-31] MEDS: LIDOCAINE 5% TOPICAL PATCH TP SCH (09:34)
[2022-08-31] MEDS: BUDESONIDE/FORMETEROL FUMARATE 160/4.5 mcg INHALER IH SCH ×2 (09:35→22:36)
[2022-08-31] MEDS ORDERED: guaiFENesin/D-M SUGAR-FREE/ACLHOL-FREE 5 ML UNIT DOSE PO SCH (12:15)
[2022-08-31] MEDS: guaiFENesin/D-M SUGAR-FREE/ACLHOL-FREE 5 ML UNIT DOSE PO SCH ×3 (14:26→22:41)
[2022-08-31] MEDS: ATORVASTATIN CA 40 MG TABLET (FP) PO SCH (22:35)
[2022-08-31] MEDS: LIDOCAINE PATCH REMOVAL MC SCH (22:45)
[2022-09-01] MEDS: methylPREDNISolone NA SUCC 40 MG/1 ML VIAL IVPUSH SCH ×2 (02:20→09:52)
[2022-09-01] MEDS: guaiFENesin/D-M SUGAR-FREE/ACLHOL-FREE 5 ML UNIT DOSE PO SCH ×6 (02:25→22:45)
[2022-09-01] MEDS: ALBUTEROL SO4 2.5/IPRATROPIUM 0.5 INH SOL 3 ML VIAL.NEB. NEB SCH ×4 (07:29→20:26)
[2022-09-01] MEDS: FAMOTIDINE 20 MG TABLET PO SCH ×2 (09:52→22:45)
[2022-09-01] MEDS: ASPIRIN 81 MG CHEWABLE TABLETS PO SCH (09:52)
[2022-09-01] MEDS: ENOXAPARIN NA (PORCINE) 40 MG/0.4 ML DISP.SYRIN SQ SCH (09:52)
[2022-09-01] MEDS: BUDESONIDE/FORMETEROL FUMARATE 160/4.5 mcg INHALER IH SCH ×2 (09:53→22:45)
[2022-09-01] MEDS: LIDOCAINE 5% TOPICAL PATCH TP SCH (09:53)
[2022-09-01] MEDS: LIDOCAINE PATCH REMOVAL MC SCH (22:45)
[2022-09-01] MEDS: ATORVASTATIN CA 40 MG TABLET (FP) PO SCH (22:45)
[2022-09-02] MEDS: guaiFENesin/D-M SUGAR-FREE/ACLHOL-FREE 5 ML UNIT DOSE PO SCH ×6 (02:10→23:24)
[2022-09-02] MEDS: ALBUTEROL SO4 2.5/IPRATROPIUM 0.5 INH SOL 3 ML VIAL.NEB. NEB SCH ×4 (07:45→20:26)
[2022-09-02] MEDS: FAMOTIDINE 20 MG TABLET PO SCH ×2 (09:08→23:19)
[2022-09-02] MEDS: methylPREDNISolone NA SUCC 40 MG/1 ML VIAL IVPUSH SCH (09:08)
[2022-09-02] MEDS: ASPIRIN 81 MG CHEWABLE TABLETS PO SCH (09:08)
[2022-09-02] MEDS: LIDOCAINE 5% TOPICAL PATCH TP SCH (09:08)
[2022-09-02] MEDS: ENOXAPARIN NA (PORCINE) 40 MG/0.4 ML DISP.SYRIN SQ SCH (09:08)
[2022-09-02 09:35] LABS: BASO % 0.4 % (0-2.0); EOS % 0.1 % (0-4.5); HEMATOCRIT 40.3 % (35.4-49); LYMPH % 18.4 % (8-40); MCH 29.9 pg (25.7-33.7); MCHC 32.3 g/dl (32.0-35.9); MEAN CELL VOLUME 92.6 fl (80-96); MEAN PLT VOLUME 9.1 fl (7.5-11.1); MONO % 8.4 % (3.8-10.2); NEUT % 72.7 % (42.8-82.8); PLATELET COUNT 227 10^3/uL (134-434); RBC 4.35 M/mm3 (4.00-5.60); RDW 15.5 % (11.9-15.9); WHITE BLOOD COUNT 15.2 K/mm3 (4.0-10.0)
[2022-09-02 10:11] LABS: ALBUMIN 3.2 g/dl (3.4-5.0); BLOOD UREA NITROGEN 40.8 mg/dL (7-18); CALCIUM 9.1 mg/dL (8.5-10.1)
[2022-09-02 10:12] LABS: MAGNESIUM 2.6 mg/dL (1.8-2.4); PHOSPHOROUS 3.7 mg/dL (2.5-4.9)
[2022-09-02 10:13] LABS: CREATININE 1.6 mg/dL (0.55-1.3)
[2022-09-02 10:15] LABS: BILIRUBIN,TOTAL 0.4 mg/dL (0.2-1); TOT PROT 6.4 g/dl (6.4-8.2)
[2022-09-02] MEDS: BUDESONIDE/FORMETEROL FUMARATE 160/4.5 mcg INHALER IH SCH ×2 (11:41→23:26)
[2022-09-02] MEDS: ATORVASTATIN CA 40 MG TABLET (FP) PO SCH (23:19)
[2022-09-02] MEDS: LIDOCAINE PATCH REMOVAL MC SCH (23:35)
[2022-09-03] MEDS: guaiFENesin/D-M SUGAR-FREE/ACLHOL-FREE 5 ML UNIT DOSE PO SCH ×3 (01:43→10:31)
[2022-09-03] MEDS: BUDESONIDE/FORMETEROL FUMARATE 160/4.5 mcg INHALER IH SCH ×2 (10:30→23:39)
[2022-09-03] MEDS: LIDOCAINE 5% TOPICAL PATCH TP SCH (10:30)
[2022-09-03] MEDS: ENOXAPARIN NA (PORCINE) 40 MG/0.4 ML DISP.SYRIN SQ SCH (10:30)
[2022-09-03] MEDS: FAMOTIDINE 20 MG TABLET PO SCH ×2 (10:30→23:38)
[2022-09-03] MEDS: methylPREDNISolone NA SUCC 40 MG/1 ML VIAL IVPUSH SCH (10:30)
[2022-09-03] MEDS: ASPIRIN 81 MG CHEWABLE TABLETS PO SCH (10:30)
[2022-09-03] MEDS: ALBUTEROL SO4 2.5/IPRATROPIUM 0.5 INH SOL 3 ML VIAL.NEB. NEB SCH (12:02)
[2022-09-03] MEDS: ATORVASTATIN CA 40 MG TABLET (FP) PO SCH (23:38)
[2022-09-03] MEDS: LIDOCAINE PATCH REMOVAL MC SCH (23:40)
[2022-09-04 08:39] VITALS: RESP 18
[2022-09-04] MEDS ORDERED: predniSONE 20 MG TABLET (UD) PO SCH (10:00)
[2022-09-04] MEDS: LIDOCAINE 5% TOPICAL PATCH TP SCH (10:31)
[2022-09-04] MEDS: ENOXAPARIN NA (PORCINE) 40 MG/0.4 ML DISP.SYRIN SQ SCH (10:31)
[2022-09-04] MEDS: ASPIRIN 81 MG CHEWABLE TABLETS PO SCH (10:31)
[2022-09-04] MEDS: FAMOTIDINE 20 MG TABLET PO SCH (10:32)
[2022-09-04] MEDS: BUDESONIDE/FORMETEROL FUMARATE 160/4.5 mcg INHALER IH SCH (10:32)
[2022-09-04 11:21] LABS: HEMATOCRIT 40.8 % (35.4-49); HEMOGLOBIN 13.6 GM/dL (11.7-16.9); MCH 30.7 pg (25.7-33.7); MCHC 33.3 g/dl (32.0-35.9); MEAN CELL VOLUME 92.4 fl (80-96); MEAN PLT VOLUME 8.3 fl (7.5-11.1); PLATELET COUNT 242 10^3/uL (134-434); RBC 4.42 M/mm3 (4.00-5.60); RDW 14.9 % (11.9-15.9); WHITE BLOOD COUNT 12.8 K/mm3 (4.0-10.0)
[2022-09-04 11:50] LABS: ANISOCYTOSIS 2+; MACROCYTOSIS 0
[2022-09-04 12:01] LABS: CALCIUM 8.9 mg/dL (8.5-10.1)
[2022-09-04 12:02] LABS: ALBUMIN 3.1 g/dl (3.4-5.0); BLOOD UREA NITROGEN 38.7 mg/dL (7-18); MAGNESIUM 2.5 mg/dL (1.8-2.4)
[2022-09-04 12:05] LABS: CREATININE 1.7 mg/dL (0.55-1.3); PHOSPHOROUS 3.3 mg/dL (2.5-4.9)
[2022-09-04 12:06] LABS: BILIRUBIN,TOTAL 0.4 mg/dL (0.2-1); TOT PROT 6.4 g/dl (6.4-8.2)
[2022-09-04 16:38] VITALS: BP 116/72; PULSE 79; TEMP 98.2
== END 2022-09-04 16:47 | disposition home or self-care (01) | DRG 140 ==
LOC: JER 04:01 → JERBED 05:43 → J6S 08-30 11:23 → J8W 09-02 01:53
PROVIDERS: ADMIT Internal Medicine; ATTEND Internal Medicine
DX: J44.1 Chronic obstructive pulmonary disease with (acute) exacerbation (principal); J44.9 Chronic obstructive pulmonary disease, unspecified; B33.8 Other specified viral diseases; E78.5 Hyperlipidemia, unspecified; I10 Essential (primary) hypertension; K21.9 Gastro-esophageal reflux disease without esophagitis; N18.9 Chronic kidney disease, unspecified; R09.02 Hypoxemia
CPT/HCPCS: 0241U-QW; 36415; 71045-TC-FY; 80048; 80053; 81003; 82803; 83735; 83880; 84100; 84484; 85025; 85610; 85730; 87086; 93005; 93010; 94640; 99285-25

== ENCOUNTER 2022-12-10 10:34 | Emergency (ER) | payer OTHER ==
[2022-12-10 10:45] VITALS: RESP 18; BMI 29.5
[2022-12-10] MEDS ORDERED: ACETAMINOPHEN 1000 MG/100 ML BAG IVPB ONE (12:44)
[2022-12-10] MEDS ORDERED: LACTATED RINGERS SOLUTION 1000 ML INFUS.BAG IV ONE (12:44)
[2022-12-10] MEDS ORDERED: ACETAMINOPHEN INJECTION 100 ML IVPB ONE (12:54)
[2022-12-10 13:33] LABS: WHITE BLOOD COUNT 11.6 K/mm3 (4.0-10.0)
[2022-12-10 13:34] LABS: EOS % 0.5 % (0-4.5); HEMATOCRIT 43.6 % (35.4-49); HEMOGLOBIN 14.2 GM/dL (11.7-16.9); LYMPH % 4.3 % (8-40); MCH 29.9 pg (25.7-33.7); MCHC 32.7 g/dl (32.0-35.9); MEAN CELL VOLUME 91.5 fl (80-96); MEAN PLT VOLUME 9.4 fl (7.5-11.1); MONO % 8.6 % (3.8-10.2); NEUT % 86.6 % (42.8-82.8); PLATELET COUNT 181 10^3/uL (134-434); RBC 4.76 M/mm3 (4.00-5.60); RDW 14.7 % (11.9-15.9)
[2022-12-10 13:53] LABS: BLOOD UREA NITROGEN 33.4 mg/dL (7-18); CALCIUM 8.7 mg/dL (8.5-10.1)
[2022-12-10 13:54] LABS: ALBUMIN 3.5 g/dl (3.4-5.0)
[2022-12-10 13:56] LABS: CREATININE 1.9 mg/dL (0.55-1.3)
[2022-12-10 13:58] LABS: BILIRUBIN,TOTAL 0.3 mg/dL (0.2-1); TOT PROT 7.5 g/dl (6.4-8.2)
[2022-12-10 15:15] VITALS: BP 119/65; PULSE 71; TEMP 97.4
== END 2022-12-10 16:34 | disposition home or self-care (01) ==
LOC: JER 10:34
PROC: 3E0333Z Introduction of Anti-inflammatory into Peripheral Vein, Percutaneous Approach (ICD-10-PCS; principal; 2022-12-10)
DX: R10.32 Left lower quadrant pain (principal); R19.7 Diarrhea, unspecified
CPT/HCPCS: 0241U-QW; 36415; 74176-TC; 80053; 83690; 83735; 85025; 86850; 86900; 86901; 99284-25